=== PATIENT | male | born 1990 | race Caucasian/White ===

== ENCOUNTER 2021-01-17 14:47 | Emergency (ER) | payer OTHER ==
[2021-01-17 15:16] VITALS: BP 121/69; PULSE 80; TEMP 99.2; BMI 25.0
[2021-01-17 21:40] LABS: CALCIUM OXALATE CRYSTALS FEW /hpf (NONE SEEN); TRIPLE PHOSPHATE CRYSTAL FEW /hpf (NONE SEEN)
== END 2021-01-17 16:23 | disposition home or self-care (01) ==
LOC: FER 14:47
DX: N23 Unspecified renal colic (principal)
CPT/HCPCS: 74176-TC; 81003; 81015; 99284-25

== ENCOUNTER 2021-10-28 15:26 | Emergency (ER) | payer OTHER ==
[2021-10-28 15:49] VITALS: TEMP 98; BMI 24.3
[2021-10-28 18:53] LABS: HEMATOCRIT 44.1 % (35.4-49); HEMOGLOBIN 15.3 GM/dL (11.7-16.9); MCH 34.2 pg (25.7-33.7); MCHC 34.7 g/dl (32.0-35.9); MEAN CELL VOLUME 98.6 fl (80-96); MEAN PLT VOLUME 6.8 fl (7.5-11.1); PLATELET COUNT 290 10^3/uL (134-434); RBC 4.47 M/mm3 (4.00-5.60); RDW 13.2 % (11.9-15.9); WHITE BLOOD COUNT 9.4 K/mm3 (4.0-10.0)
[2021-10-28 19:05] LABS: CHLORIDE 105 mmol/L (98-107); SODIUM 139 mmol/L (136-145)
[2021-10-28 19:08] LABS: CALCIUM 9.6 mg/dL (8.5-10.1)
[2021-10-28 19:09] LABS: ALBUMIN 4.7 g/dl (3.4-5.0); ANION GAP 6 MMOL/L (8-16); BLOOD UREA NITROGEN 11.1 mg/dL (7-18); CO2 28 mmol/L (21-32); GLUCOSE,RANDOM 106 mg/dL (74-106)
[2021-10-28 19:12] LABS: CREATININE 1.1 mg/dL (0.55-1.3); SGOT/AST 10 U/L (15-37); SGPT/ALT 21 U/L (13-61)
[2021-10-28 19:13] LABS: BILIRUBIN,TOTAL 1.4 mg/dL (0.2-1); TOT PROT 7.4 g/dl (6.4-8.2)
[2021-10-28 19:15] LABS: ALK PHOS 80 U/L (45-117)
[2021-10-28 21:15] LABS: URINE APPEARANCE CLEAR; URINE BILIRUBIN NEGATIVE (NEGATIVE); URINE COLOR YELLOW; URINE GLUCOSE (UA) NEGATIVE (NEGATIVE); URINE KETONE NEGATIVE (NEGATIVE); URINE LEUK ESTERASE NEGATIVE (NEGATIVE); URINE NITRITE NEGATIVE (NEGATIVE); URINE PROTEIN NEGATIVE (NEGATIVE); URINE UROBILINOGEN 0.2 mg/dL (0.2-1.0)
[2021-10-28 21:44] LABS: METHADONE, UR NEGATIVE (NEGATIVE); OPIATES, URI NEGATIVE (NEGATIVE); URINE AMPHETAMINES NEGATIVE (NEGATIVE)
[2021-10-28 21:45] LABS: PHENCYCLIDINE,URINE NEGATIVE (NEGATIVE); URINE BARBITURATES NEGATIVE (NEGATIVE)
[2021-10-28 22:12] LABS: COCAINE, UR POSITIVE (NEGATIVE); URINE BENZODIAZEPINES NEGATIVE (NEGATIVE)
[2021-10-29 06:50] VITALS: BP 115/73; PULSE 72
== END 2021-10-29 10:35 | disposition home or self-care (01) ==
LOC: JER 15:26
DX: R45.89 Other symptoms and signs involving emotional state (principal)
CPT/HCPCS: 36415; 80053; 80307; 81003; 85027; 87086; 93005; 93010; 99284-25

== ENCOUNTER 2022-12-02 11:01 | Emergency (ER) | payer OTHER ==
[2022-12-02 11:07] VITALS: BP 126/83; PULSE 85; RESP 20; TEMP 99.3; BMI 26.4
[2022-12-02] MEDS ORDERED: valACYclovir HCL 500 MG TABLET (FP) PO ONE (11:20)
[2022-12-02] MEDS ORDERED: valACYclovir HCL 500 MG TABLET (FP) ONE (11:28)
== END 2022-12-02 11:43 | disposition home or self-care (01) ==
LOC: FER 11:01
DX: R21 Rash and other nonspecific skin eruption (principal); B00.9 Herpesviral infection, unspecified
CPT/HCPCS: 99283-25